=== PATIENT | female | born 1995 | race Caucasian/White ===

== ENCOUNTER 2022-08-22 19:21 | Emergency (ER) | payer BC, MEDICAID ==
[~2022-08-22] VITALS: Ht 142.2 cm; Wt 49.9 kg
[2022-08-22 19:48] VITALS: BP_SYST 121
--- NOTE | 2022-08-22 19:48 | NUR ---
Triaged and placed patient back to the waiting room. No acute respiratory distress at this time. VSS. Informed patient to notify ED staff for any changes in condition or worsening of symptoms while waiting to be seen by a provider. Patient verbalized understanding.
--- NOTE | 2022-08-22 19:58 | NUR ---
iNFLUENZA AND COVID FUAD SPECIMEN COLLECTED AND DROPPED OFF AT THE LAB.
--- NOTE | 2022-08-22 22:44 | NUR ---
DR. BURRIS AT BEDSIDE EXAMINING THE PATIENT.
[2022-08-22] MEDS ORDERED: ACETAMINOPHEN 500 MG TABLET PO ONE (23:15)
[2022-08-22] MEDS ORDERED: IBUPROFEN 600 MG TABLET PO ONE (23:15)
[2022-08-22] MEDS ORDERED: BENZONATATE 100 MG CAPSULE (TESSALON) PO ONE (23:15)
[2022-08-22] MEDS ORDERED: ONDANSETRON 4 MG ODT TAB PO ONE (23:15)
--- NOTE | 2022-08-23 00:08 | NUR ---
Patient to ER bed 3 to gown for evaluation. Side rails up. Report given to LIZA LINDO(REG).
[2022-08-23 00:34] LABS: BASOPHILS % (AUTO) 0.3 % (0.0-2.0); EOSINOPHILS # (AUTO) 0.1 K/uL (0.0-0.4); EOSINOPHILS % (AUTO) 0.8 % (0.0-4.0); HEMATOCRIT 39.4 % (36-48); HEMOGLOBIN 13.2 g/dL (12.0-16.0); LYMPHOCYTES # (AUTO) 1.3 K/uL (1.0-5.5); LYMPHOCYTES % (AUTO) 10.3 % (20.5-51.5); MEAN CORPUSCULAR HEMOGLOBIN 31 pg (27-31); MEAN CORPUSCULAR HGB CONC 34 % (32-36); MEAN CORPUSCULAR VOLUME 92 fL (79.0-98.0); MONOCYTES % (AUTO) 8.1 % (1.7-9.3); NEUTROPHILS # (AUTO) 10.1 K/uL (1.8-7.7); NEUTROPHILS % (AUTO) 80.5 % (40.0-70.0); PLATELET COUNT (AUTO) 333 K/uL (130-430); RED BLOOD CELL COUNT(AUTO) 4.29 MIL/uL (4.2-6.2); RED CELL DISTRIBUTION WIDTH 13.5 % (9.0-15.0); WHITE BLOOD COUNT (AUTO) 12.5 K/uL (4.8-10.8)
[2022-08-23] MEDS ORDERED: BENZONATATE 100 MG CAPSULE (TESSALON) ONE (00:51)
[2022-08-23 00:59] LABS: CALCIUM 8.4 mg/dL (8.4-11.0); CREATININE 0.59 mg/dL (0.55-1.30)
[2022-08-23 01:03] LABS: ALBUMIN 3.1 g/dL (3.4-4.8); TOTAL BILIRUBIN 0.2 mg/dL (0.0-1.0)
--- NOTE | 2022-08-23 01:04 | NUR ---
UA collected and sent to lab.
[2022-08-23 01:13] LABS: BILIRUBIN,URINE NEGATIVE (NEGATIVE); BLOOD, URINE NEGATIVE (NEGATIVE); COLOR,URINE YELLOW (YELLOW); GLUCOSE,URINE NEGATIVE (NEGATIVE); KETONES,URINE 1+ (NEGATIVE); LEUKOCYTE ESTERASE ,URINE TRACE (NEGATIVE); NITRITE, URINE NEGATIVE (NEGATIVE); PROTEIN URINE NEGATIVE (NEGATIVE)
--- NOTE | 2022-08-23 01:13 | NUR ---
Mervin pendleton in [facility] - 08/23/22 at 0120 by [id number] COVID/INFLUENZA swab collected and sent to lab.
[2022-08-23] MEDS ORDERED: POTASSIUM CHLORIDE 20 MEQ TAB.PRT.SR PO ONE (01:45)
[2022-08-23 01:46] LABS: CLARITY/URINE SLIGHTLY CLOUDY (CLEAR)
[2022-08-23 01:51] LABS: BACTERIA,URINE FEW /HPF (None Seen); RBC,URINE 0-3 /HPF (0-3)
[2022-08-23] MEDS ORDERED: ACET-2634 PO (02:31)
[2022-08-23] MEDS ORDERED: ROBAC PO (02:31)
[2022-08-23] MEDS ORDERED: ONDA-8 TL (02:31)
--- NOTE | 2022-08-23 03:05 | NUR ---
Patient given written and verbal discharge instructions and verbalizes understanding. ER MD Valdez discussed with patient the results and treatment provided. Patient in stable condition. ID arm band removed. Rx of Tyl xtra strength, Zofran, and Robitussin AC sent to preferred pharmacy. Patient educated on pain management and to follow up with PMD. P Opportunity for questions provided and answered. Medication side effect fact sheet provided.
[2022-08-23 03:07] VITALS: BP_SYST 121
== END 2022-08-23 03:07 | disposition home or self-care (01) ==
LOC: SED 19:21
DX: B34.9 Viral infection, unspecified (principal); R11.2 Nausea with vomiting, unspecified; R19.7 Diarrhea, unspecified; E87.6 Hypokalemia; R50.9 Fever, unspecified; Z79.899 Other long term (current) drug therapy; Z20.822 Contact with and (suspected) exposure to COVID-19
CPT/HCPCS: 99284; 71045; 87426; 80053; 81000; 83690; 85025; 87086; 36415; 81025; 87804 ×2; Q0162